=== PATIENT | female | born 1995 | race African-American/Black ===

== ENCOUNTER 2017-05-12 18:48 | Emergency (ER) | payer MEDICARE ==
[~2017-05-12] VITALS: Ht 170.2 cm; Wt 63.5 kg
[~2017-05-12 18:48] MED LIST: DIPH50CA PO; FOLI1TAB51 PO; HYD500C PO; IBUP800T24 PO; NOR10T GT
[2017-05-12 19:39] LABS: Hematocrit 27.6 % (36.0-46.0); Hemoglobin 9.5 g/dL (12.2-16.2); Mean Corpuscular Hemoglobin 38.3 pg (28.0-32.0); Mean Corpuscular Hgb Conc. 34.3 g/dL (32.0-36.0); Mean Corpuscular Volume 111.7 fL (80.0-100.0); Mean Platelet Volume 8.4 fL (6.9-10.8); Platelet Count (auto) 380 10^3/uL (140-450); Red Cell Distribution Width 19.1 % (11.8-14.3); White Blood Cell 10.6 10^3/uL (4.4-10.8)
[2017-05-12 19:40] LABS: Urine Bilirubin Negative (Negative); Urine Blood Negative /uL (Negative); Urine Color Yellow (Yellow); Urine Glucose Normal (Normal); Urine Ketone Negative (Negative); Urine Nitrite Negative (Negative); Urine RBC 1 /hpf (0 - 4); Urine Sperm PRESENT /hpf (None Seen); Urine Squamous Epithelial Cell MOD /hpf (<5); Urine pH 6.5 (5.0-8.0)
[2017-05-12 19:44] LABS: Metamyelocytes % 0; Myelocytes % 0; Promyelocytes % 0; Reactive Lymphocytes 0
[2017-05-12 19:56] LABS: Bilirubin, Total 1.5 mg/dL (0.2-1.0); Calcium 8.6 mg/dL (8.5-10.1); Potassium 4.2 mmol/L (3.5-5.1); Total Protein 8.4 g/dL (6.4-8.2)
[2017-05-12 20:53] LABS: Platelet Estimate Adequate
[2017-05-12 20:54] LABS: Anisocytosis Slight; Macrocytosis Marked; Sickle Cells MANY
[2017-05-13] MEDS ORDERED: diphenhdrAMINE HCL 50 MG/1 ML VL IV ONE (02:00)
[2017-05-13] MEDS ORDERED: HYDROmorphone HCL 2 MG/ML VL IV ONE (02:00)
[2017-05-13] MEDS ORDERED: ONDANSETRON HCL 4 MG/2 ML VIAL IV ONE (02:00)
[2017-05-13 02:51] VITALS: BP 109/61
== END 2017-05-13 04:06 | disposition home or self-care (01) ==
LOC: ER 18:48
DX: J06.9 Acute upper respiratory infection, unspecified (principal); D57.1 Sickle-cell disease without crisis; M19.90 Unspecified osteoarthritis, unspecified site; M79.1 Myalgia; Z90.49 Acquired absence of other specified parts of digestive tract; Z83.3 Family history of diabetes mellitus
CPT/HCPCS: 36415; 80053; 81001; 81025; 85007; 85027; 96374; 96375; 99284; J1170; J1200; J2405

== ENCOUNTER 2017-05-28 21:40 | Emergency (ER) | payer MEDICARE, MEDICAID ==
[~2017-05-28] VITALS: Ht 170.2 cm; Wt 63.5 kg
[2017-05-28 21:58] VITALS: BP 112/68
[2017-05-28 22:36] LABS: Eosinophils # (auto) 0.2 uL; Eosinophils % (auto) 1.6 % (0.0-7.0); Hematocrit 28.3 % (36.0-46.0); Mean Corpuscular Hemoglobin 36.6 pg (28.0-32.0)
[2017-05-28 22:37] LABS: Basophils # (auto) 0.2 uL; Basophils % (auto) 2.1 % (0.0-2.0); Hemoglobin 9.9 g/dL (12.2-16.2); Lymphocytes # (auto) 1.7 uL; Lymphocytes % (auto) 14.7 % (10.0-50.0); Mean Corpuscular Hgb Conc. 34.8 g/dL (32.0-36.0); Mean Corpuscular Volume 105.3 fL (80.0-100.0); Mean Platelet Volume 8.1 fL (6.9-10.8); Monocytes # (auto) 1.1 uL; Monocytes % (auto) 9.4 % (0.0-12.0); Neutrophils # (auto) 8.1 uL; Neutrophils % (auto) 72.2 % (37.0-80.0); Platelet Count (auto) 471 10^3/uL (140-450); White Blood Cell 11.3 10^3/uL (4.4-10.8)
[2017-05-28 22:49] LABS: Red Cell Distribution Width 21.2 % (11.8-14.3)
[2017-05-28 22:51] LABS: BUN/Creatinine Ratio 9.4; Bilirubin, Total 1.7 mg/dL (0.2-1.0); Calcium 8.5 mg/dL (8.5-10.1); Potassium 3.9 mmol/L (3.5-5.1); Total Protein 8.6 g/dL (6.4-8.2)
[2017-05-28 23:46] LABS: Anisocytosis Slight; Macrocytosis Moderate
[2017-05-28 23:47] LABS: Ovalocytes MODERATE; Polychromasia Slight; Sickle Cells MANY
[2017-05-28 23:48] LABS: Large Platelets FEW; Platelet Estimate Adequa
[2017-05-29 00:01] LABS: Urine Bilirubin Negative (Negative); Urine Blood Negative /uL (Negative); Urine Color Yellow (Yellow); Urine Glucose Normal (Normal); Urine Ketone Negative (Negative); Urine Nitrite POSITIVE (Negative); Urine RBC <1 /hpf (0 - 4); Urine Squamous Epithelial Cell FEW /hpf (<5); Urine Urobilinogen Normal (Negative); Urine WBC Clumps PRESENT /hpf (None Seen); Urine pH 6.5 (5.0-8.0)
== END 2017-05-29 02:42 | disposition left against medical advice (07) ==
LOC: ER 21:40
DX: M54.9 Dorsalgia, unspecified (principal); D57.00 Hb-SS disease with crisis, unspecified; Z53.21 Procedure and treatment not carried out due to patient leaving prior to being seen by health care provider
CPT/HCPCS: 36415; 80053; 81001; 84702; 85025

== ENCOUNTER 2017-05-29 07:39 | Emergency (ER) | payer MEDICARE, MEDICAID ==
[~2017-05-29] VITALS: Ht 170.2 cm; Wt 63.5 kg
[2017-05-29 08:24] VITALS: BP 106/79
== END 2017-05-29 20:18 | disposition home or self-care (01) ==
LOC: ER 07:39
DX: M54.5 Low back pain (principal); M79.1 Myalgia; D57.1 Sickle-cell disease without crisis; M19.90 Unspecified osteoarthritis, unspecified site; Z90.49 Acquired absence of other specified parts of digestive tract
CPT/HCPCS: 72100

== ENCOUNTER 2018-07-01 06:16 | Emergency (ER) | payer MEDICARE, MEDICAID ==
[~2018-07-01] VITALS: Ht 170.2 cm; Wt 63.5 kg
[2018-07-01 07:09] LABS: Hematocrit 24.9 % (36.0-46.0); Hemoglobin 8.9 g/dL (12.2-16.2); Mean Corpuscular Hemoglobin 33.7 pg (28.0-32.0); Mean Corpuscular Hgb Conc. 35.5 g/dL (32.0-36.0); Mean Corpuscular Volume 94.7 fL (80.0-100.0); Platelet Count (auto) 374 10^3/uL (140-450); Red Blood Cells 2.63 10^6/uL (4.0-5.20); White Blood Cell 13.3 10^3/uL (4.4-10.8)
[2018-07-01 07:12] LABS: Red Cell Distribution Width 25.3 % (11.8-14.3)
[2018-07-01 07:13] LABS: Band Neutrophils % (manual) 0; Basophils % (manual) 0 (0.0-2.0); Blast Cells 0; Metamyelocytes % 0; Myelocytes % 0; Promyelocytes % 0; Reactive Lymphocytes 0
[2018-07-01 07:37] LABS: Albumin 4.1 g/dL (3.4-5.0); Calcium 8.6 mg/dL (8.5-10.1); Potassium 4.7 mmol/L (3.5-5.1)
[2018-07-01 07:43] LABS: BUN/Creatinine Ratio 10.9; Bilirubin, Total 2.8 mg/dL (0.2-1.0); Total Protein 8.4 g/dL (6.4-8.2)
[2018-07-01] MEDS ORDERED: SODIUM CHLORIDE 0.9% 1,000 ML IV ONE ×2 (08:59)
[2018-07-01] MEDS ORDERED: KETOROLAC TROMETH 30 MG/ML 1ML VIAL IV ONE (09:00)
[2018-07-01] MEDS ORDERED: HYDROmorphone HCL 2 MG/ML VL IV ONE (09:15)
[2018-07-01] MEDS ORDERED: diphenhdrAMINE HCL 50 MG/1 ML VL IV ONE (09:15)
[2018-07-01] MEDS ORDERED: PROMETHAZINE HCL 25 MG/ML 1ML IV ONE (09:15)
[2018-07-01 11:18] LABS: Eosinophils % (manual) 2 (0-7); Lymphocytes % (manual) 28 (10.0-50.0); Monocytes % (manual) 12 (0-12)
[2018-07-01] MEDS ORDERED: cefTRIAXone 1GM/50ML D5W 50 ML IV ONE (12:30)
[2018-07-01 14:42] LABS: Urine Bacteria FEW /hpf (None Seen); Urine Blood Negative /uL (Negative); Urine Mucus FEW (None Seen); Urine Specific Gravity 1.009 (1.001-1.035); Urine WBC 2 /hpf (0 - 5)
[2018-07-01 15:11] VITALS: BP 107/72
== END 2018-07-01 15:46 | disposition home or self-care (01) ==
LOC: EDBD 06:16 → ER 06:24
DX: D57.1 Sickle-cell disease without crisis (principal)
CPT/HCPCS: 36415; 76705; 80053; 81001; 84484; 84702; 85007; 85027; 93005; 96361; 96365; 96375; 99284; J0696; J1170; J1200; J1885; J2550; J7030